=== PATIENT | male | born 1995 | race Caucasian/White ===

== ENCOUNTER 2018-11-16 13:00 | Emergency (ER) | payer SELFPAY ==
[~2018-11-16] VITALS: Ht 175.3 cm; Wt 97.1 kg
[2018-11-16 13:20] VITALS: BP 115/56
--- NOTE | 2018-11-16 13:44 | NUR ---
PT BIB SELF WITH C/O CHANGE IN COLOR OF SKIN, APPEARS TO BE BRUSING, 1 JUAN TO RT UPPER ARM, 1 JUAN TO RT THIGH. NO REDNESS, NO RAISED SKIN, NO PAIN ON PALPATION. PTR AAOX4, DENIES ANY PAIN, FEVER, NAUSEA, VOMITING. NO PMH, NKDA
[2018-11-16 14:33] VITALS: BP 115/56
--- NOTE | 2018-11-16 14:34 | NUR ---
Patient discharged with v/s stable. Written and verbal after care instructions given and explained. Patient alert, oriented and verbalized understanding of instructions. Ambulatory with steady gait. All questions addressed prior to discharge. ID band removed. Patient advised to follow up with PMD. Rx of ELDOPAQUE FORTE 4% given. Patient educated on indication of medication including possible reaction and side effects. Opportunity to ask questions provided and answered.
== END 2018-11-16 14:31 | disposition home or self-care (01) ==
LOC: MED 13:00
DX: L81.8 Other specified disorders of pigmentation (principal)
CPT/HCPCS: 99282